=== PATIENT | male | born 1985 | race Caucasian/White ===

== ENCOUNTER 2024-09-13 06:47 | Day surgery (SDC) | payer BC ==
[2024-09-13 07:16] VITALS: RESP 18; O2SAT 98
[2024-09-13] MEDS: Lactated Ringers 1,000 ML IV SCH (07:26)
[2024-09-13] MEDS: CEFAZOLIN 2 GM/100 ML NaCl 2 GM/100 ML IVPB IV SCH (07:26)
[2024-09-13 07:31] LABS: Hematocrit 47.2 % (40.1-51.0); Hemoglobin 15.9 g/dL (13.7-17.5); Mean Cell Volume 91.5 fL (79.0-92.2); Mean Corpuscular Hemoglobin 30.8 pg (25.7-32.2); Mean Corpuscular Hgb Concent. 33.7 g/dL (32.3-36.5); Platelet Count 201 x10^3/uL (163-337); Red Blood Count 5.16 x10^6/uL (4.63-6.08); Red Cell Distribution Width 13.1 % (11.6-14.4)
[2024-09-13 07:47] LABS: ALBUMIN 4.8 g/dL (3.5-5.0); ANION GAP 14.1 MEQ/L (5-15); BILIRUBIN,TOTAL 0.6 mg/dL (0.2-1.3); Calcium 9.4 mg/dL (8.4-10.2); Creatinine 1 0.98 mg/dL (0.66-1.25); EST GLOMERULAR FILTRATION RATE 99.4 ML/MIN; Potassium 4.4 mmol/L (3.5-5.1); Total Protein 7.9 g/dL (6.3-8.2)
[2024-09-13] MEDS ORDERED: Marcaine Mpf 0.5% Vial 30 Ml ONE (11:04)
[2024-09-13] MEDS ORDERED: EXPAREL 133 MG/10 ML VIAL IJ ONE (11:04)
[2024-09-13] MEDS ORDERED: DIPRIVAN 200 MG/20 ML IV ONE (11:05)
[2024-09-13] MEDS ORDERED: ROCURONIUM BROMIDE IV ONE (11:05)
[2024-09-13] MEDS ORDERED: TORAdol 30 mg Injection ONE (11:05)
[2024-09-13] MEDS ORDERED: Xylocaine-Mpf 2% 5 Ml Vial ONE ×2 (11:05→14:31)
[2024-09-13] MEDS ORDERED: BRIDION 200MG/2ML IV ONE (11:05)
[2024-09-13] MEDS ORDERED: Versed 2 MG/2 ML Injection ONE (11:05)
[2024-09-13] MEDS ORDERED: Zofran 4 MG/2 ML VIAL ONE (11:05)
[2024-09-13] MEDS ORDERED: SUBLIMAZE 100 MCG/2 ML ONE ×2 (11:05→14:26)
[2024-09-13] MEDS ORDERED: Lactated Ringers 1,000 ML IV ONE (12:29)
--- NOTE | 2024-09-13 14:03 | XRAY ---
Indication: Right foot peroneal tendon debridement and transfer. Intraoperative fluoroscopy provided 15 seconds. Single AP digital spot image right ankle submitted for interpretation. No bony, articular, or soft tissue abnormalities. Correlate with intraoperative findings/report.
--- NOTE | 2024-09-13 14:13 | XRAY ---
15 seconds of fluoroscopy was used in surgery for a right foot peroneal tendon debridement and transfer.
[2024-09-13] MEDS ORDERED: Hydromorphone 1 mg/ml Injection ONE (14:26)
[2024-09-13] MEDS ORDERED: DEXMEDETOMIDINE 80 MCG/20ML-NS IV ONE (14:31)
[2024-09-13 15:35] VITALS: TEMP 97
[2024-09-13 15:39] VITALS: BP 113/58; PULSE 62
--- NOTE | 2024-09-16 12:05 | OP ---
SURGERY DATE/TIME: 09/13/2024 [id number] PREOPERATIVE DIAGNOSES: 1) Rupture of right peroneus longus tendon. 2) Tear of peroneus brevis. 3) Painful os peroneum syndrome. 4) Calcaneal exostosis. 5) Sural nerve entrapment. 6) Pain, right ankle. 7) Reduced function. POSTOPERATIVE DIAGNOSES: 1) Rupture of right peroneus longus tendon. 2) Tear of peroneus brevis. 3) Painful os peroneum syndrome. 4) Calcaneal exostosis. 5) Sural nerve entrapment. 6) Pain, right ankle. 7) Reduced function. PROCEDURES: 1) Peroneus brevis tendon debridement with removal of low-lying muscle belly, as well as re-tubularization, right lower extremity. 2) Peroneus longus debridement, right lower extremity. 3) Excision of os peroneum, right lower extremity. 4) Peroneus longus to peroneus brevis tendon transfer, right lower extremity. 5) Calcaneal exostectomy, right lower extremity. 6) Sural nerve decompression, right lower extremity. SURGEON: Luis Felipe Magana DPM DIALYSIS CHIEF EQUIPMENT TECHNICIAN: Kirill Bronson NP-C ANESTHESIA: General, plus a preoperative popliteal and saphenous julia. See anesthesia report for details. HEMOSTASIS: Thigh tourniquet set to 300 mmHg for a total of 69 total tourniquet minutes. ESTIMATED BLOOD LOSS: Approximately 20 mL. MATERIALS: A 2-0 PDS, as well as a 4 x3 Tapestry. INDICATIONS: The patient is a very pleasant 39-year-old male who presented to my service with a 3- to 4-week history of pain to the right ankle. Patient came to the walk-in clinic earlier this month after a rolling injury to his right ankle where he came down on it while playing basketball and felt a pop. Patient had immediate pain and after 1 week presented to the orthopedic nurse practitioner. At that time, x-rays were taken demonstrating a displaced os peroneum, very highly suspect of a peroneal tendon rupture, as well as an MRI which was taken demonstrating confirmation of that rupture at the level of cuboid groove, as well as significant disease to the lateral wall of the calcaneus as well as the peroneus brevis. Patient has had a delay in the treatment due to the fact that he wanted to proceed with participating in hunting season with his child. Now that is over, patient wishes to proceed as the pain has become unbearable and has not relented over the course of the last 3 weeks. Patient has been made aware of all risks, complications, and benefits of surgical intervention at this time including, but not limited to, infection, hematoma, seroma, possibility of delayed wound healing, non-wound healing, and possible need for further surgical intervention at a later date. No guarantees were provided as to the outcome of surgical intervention. Plenty of time was allowed for the patient to ask questions, which were answered to his apparent satisfaction. It was at this time we decided to proceed. DESCRIPTION OF PROCEDURE AND FINDINGS: Patient was brought into the PACU prior to the procedure and provided a popliteal and saphenous block. See anesthesia report for details. Following this, patient was brought into the operating room and placed on the operating room table in the supine position. General anesthesia was administered until the patient was adequately sedated. A well-padded thigh tourniquet was applied to the patient's right thigh, and the tourniquet was set to 300 mmHg. At this time, the right lower extremity was prepped and draped in the typical sterile fashion and lowered onto the surgical field. At this time, attention was directed from the posterior border of the fibula extending to the insertion of the fifth metatarsal of the peroneus brevis. From that standpoint, an Esmarch was utilized to exsanguinate the leg. Tourniquet was inflated to 300 mmHg. Then, a 10 blade was utilized to make an incision running in a curvilinear-like fashion from those 2 landmarks. This was deepened making sure not to damage any neurovascular structures. At the level of the lateral calcaneal wall, the sural nerve was identified and retracted plantarly for the remainder of the case until the end where the decompression took place. From that standpoint, attention was directed to the tenosynovium of the peroneus brevis and the peroneus longus which was excised and scarred. From that standpoint, the peroneus brevis was identified and identified to be intact, however, with a significant amount of longitudinal tears likely due to mechanical irritation on its deep side. This was identified at the lateral calcaneal wall. From that standpoint, debridement of this tendon took place, utilizing a 15 blade and curette on the inner aspect of the tendon. There was diseased aspects of the tendon that were removed and then an all-inside technique utilizing a 4-0 PDS was utilized to suture the tendon, re-tubularizing it for approximately 4 cm at its distal extent. The tendon was inspected proximally, and it was deemed to have a low-lying muscle belly with the muscle in eversion. The superior peroneal retinaculum was assessed utilizing a [place] and with the foot in an everted position, demonstrating no laxity; however, when the foot was pulled into an inverted Position, there was a significant amount of diseased-appearing muscle within the retinacular groove which was removed. Following the debridement, the peroneus longus was easily identified and the rupture was identified. At this time, the os peroneum was removed, and this seems to be the site of rupture for the peroneus longus at the site of the cuboid groove. Once this was performed, the tendon was assessed and deemed to be far too diseased in order to proceed with salvage for this tendon. From that standpoint, the tendon was then resected, taking out approximately 6.5 to 7 cm of tendon, and this was handed off the field for pathological assessment. Once this was performed and the healthy tendon was assessed, under physiologic tension and after debriding the 2 tendon edges, the peroneus longus was Pulvertaft weave stitched into the peroneus longus tendon. This was tested and was under enough physiologic tension to provide extra strength to this muscle. The remnant of the peroneus longus that went underneath the cuboid groove was attempted to stitch to the peroneus brevis; however, the tendon was very diseased at the cuboid groove, and decision was made to forego the tenodesis of this at that juncture. From that standpoint, the os peroneum was removed as well as the infected tendon. All other tendon was inspected. Range of motion was then also assessed. Given the severity of the disease, decision was made to proceed with the use of a 3 x 4 Tapestry. From that standpoint, this was stitched utilizing 4-0 Monocryl at 2 different sites, the tenodesis site as well as the tendon repair site. Once this was performed, the lateral wall of the calcaneus was identified to have a significant irregularity to it, and a hand rasp was utilized to take the prominent bone down, particularly at the peroneal trochlea at the lateral wall of the calcaneus. Once this was achieved, bone wax was then placed over the lateral wall of the calcaneus to prevent adhesions and scarring. Following this, the sural nerve was traced proximally. Patient did have a positive Tinel's prior to the procedure, and identifying at this site where there was extreme pain, there did seem to be a significant amount of scar tissue at the level of the sural nerve overlapping the peroneus brevis tendon where it had scarred to the tendon itself. This was released from approximately 10 cm proximal to the tibiotalar joint all the way down to the lateral wall of the calcaneus, seen freely moving nerve and free of constrictors. From that standpoint, patient was then cleansed with copious amounts of sterile saline. The wound was then coapted utilizing 4-0 Monocryl and 3-0 nylon in a simple interrupted buried type fashion and a horizontal mattress type fashion, respectively. Patient was then placed in a well-padded posterior splint with sugar-tong. Patient was then reversed from anesthesia and returned to the postoperative anesthesia care unit with vital signs stable and vascular status intact. Patient handled the anesthesia as well as the procedure without significant complications. Postoperative orders as indicated in the patient's discharge chart.
== END 2024-09-13 15:55 | disposition home or self-care (01) ==
LOC: SDC 06:47
PROVIDERS: ATTEND Podiatrist Foot & Ankle Surgery
DX: S86.391A Other injury of muscle(s) and tendon(s) of peroneal muscle group at lower leg level, right leg, initial encounter (principal); S86.211A Strain of muscle(s) and tendon(s) of anterior muscle group at lower leg level, right leg, initial encounter; M25.571 Pain in right ankle and joints of right foot; M77.31 Calcaneal spur, right foot; G57.81 Other specified mononeuropathies of right lower limb; M25.371 Other instability, right ankle
CPT/HCPCS: 27658; 27676; 27691; 28118; 28122; 36415; 64704; 73630; 76000; 80053; 85027; C1763; 28112; J0690; J1171; J1885; J2250; J2405; J2704; J3010